=== PATIENT | female | born 1990 | race Caucasian/White ===

== ENCOUNTER 2017-01-31 10:33 | Emergency (ER) | payer OTHER ==
[~2017-01-31] VITALS: Ht 167.6 cm; Wt 58.0 kg
[~2017-01-31 10:33] MED LIST: Z.0.BCPILL PO
[2017-01-31 10:35] VITALS: BP 127/85; PULSE 96; RESP 18; TEMP 98.3; O2SAT 99
[2017-01-31] MEDS ORDERED: birth control (11:00)
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
== END 2017-01-31 12:40 | disposition home or self-care (01) ==
LOC: NEPD 10:33
DX: F07.81 Postconcussional syndrome (principal)
CPT/HCPCS: 70450

== ENCOUNTER → 2017-03-05 | Outpatient (CLI) | payer OTHER ==
[~2017-03-05] MED LIST changes: -Z.0.BCPILL PO; +birth control
[2017-03-05 14:18] LABS: AUTOMATED NEUTROPHIL # 2.4 TH/MM3 (1.8-7.7); BASOPHIL % 0.7 % (0.0-2.0); EOSINOPHIL # 0.1 TH/MM3 (0-0.4); EOSINOPHIL % 1.1 % (0.0-4.0); HEMATOCRIT 39.4 % (35.0-46.0); HEMO FLAGS DIFF FINAL; LYMPH % 43.9 % (9.0-44.0); LYMPHOCYTE # 2.2 TH/MM3 (1.0-4.8); MEAN CELL VOLUME 91.1 FL (80.0-100.0); MEAN CORPUSCULAR HEMOGLOBIN 29.8 PG (27.0-34.0); MEAN CORPUSCULAR HGB CONC 32.7 % (32.0-36.0); MONO % 7.2 % (0.0-8.0); NEUT % 47.1 % (16.0-70.0); PLATELET COUNT 330 TH/MM3 (150-450); RED BLOOD COUNT 4.32 MIL/MM3 (4.00-5.30); RED CELL DISTRIBUTION WIDTH 13.8 % (11.6-17.2)
[2017-03-05 14:39] LABS: ALT (GPT) 27 U/L (10-53); ANION GAP 6 MEQ/L (5-15); AST (GOT) 19 U/L (15-37); BICARBONATE 30.7 MEQ/L (21.0-32.0); CHLORIDE 99 MEQ/L (98-107); GLOMERULAR FILTRATION RATE 104 ML/MIN (>89); GLUCOSE,FASTING 78 MG/DL (74-99); POTASSIUM 3.7 MEQ/L (3.5-5.1); SODIUM (NA) 136 MEQ/L (136-145)
[2017-03-05 14:45] LABS: ALKALINE PHOSPHATASE 59 U/L (45-117); BLOOD UREA NITROGEN 11 MG/DL (7-18); HDL CHOLESTEROL 80.3 MG/DL (40.0-60.0); LDL CHOLESTEROL 136 MG/DL (0-99); TOTAL BILIRUBIN ADULT 0.3 MG/DL (0.2-1.0)
[2017-03-05 16:38] LABS: CHLAMYDIA PCR NOT DETECTED (NOT DETECT); NEISSERIA PCR NOT DETECTED (NOT DETECT)
[2017-03-06 10:25] LABS: RAPID PLASMA REAGIN SCREEN NON-REACTIVE (NON-REACTVE)
[2017-03-08 14:04] LABS: HSV IGM 1 TITER ND TITER; HSV IGM II TITER ND TITER
[2017-03-08 23:51] LABS: HSV2 IGM IFA NEGATIVE (())
== END ==
LOC: CLAB 13:35
PROVIDERS: ATTEND Family Medicine
DX: R10.12 Left upper quadrant pain (principal); Z11.3 Encounter for screening for infections with a predominantly sexual mode of transmission
CPT/HCPCS: 36415; 80053; 80061; 82306; 84443; 85025; 86592; 86695; 86696; 86703; 86705; 86803; 87340; 87491; 87591

== ENCOUNTER → 2018-03-14 | Outpatient (CLI) | payer OTHER ==
[2018-03-14 12:54] LABS: AUTOMATED NEUTROPHIL # 3.8 TH/MM3 (1.8-7.7); BASOPHIL % 0.3 % (0.0-2.0); EOSINOPHIL % 0.6 % (0.0-4.0); HEMATOCRIT 42.2 % (35.0-46.0); HEMOGLOBIN 13.6 GM/DL (11.6-15.3); LYMPH % 29.4 % (9.0-44.0); LYMPHOCYTE # 1.7 TH/MM3 (1.0-4.8); MEAN CORPUSCULAR HEMOGLOBIN 29.3 PG (27.0-34.0); MEAN CORPUSCULAR HGB CONC 32.2 % (32.0-36.0); MEAN PLATELET VOLUME 8.2 FL (7.0-11.0); MONO % 4.7 % (0.0-8.0); MONOCYTE # 0.3 TH/MM3 (0-0.9); PLATELET COUNT 294 TH/MM3 (150-450); RED BLOOD COUNT 4.63 MIL/MM3 (4.00-5.30); RED CELL DISTRIBUTION WIDTH 14.1 % (11.6-17.2); WHITE BLOOD COUNT 5.8 TH/MM3 (4.0-11.0)
[2018-03-14 13:16] LABS: ALBUMIN 3.8 GM/DL (3.4-5.0); ALT (GPT) 19 U/L (10-53); BICARBONATE 26.8 MEQ/L (21.0-32.0); BLOOD UREA NITROGEN 10 MG/DL (7-18); CALCIUM 9.1 MG/DL (8.5-10.1); CHLORIDE 104 MEQ/L (98-107); CHOLESTEROL 208 MG/DL (120-200); CREATININE 0.77 MG/DL (0.50-1.00); GLOMERULAR FILTRATION RATE 91 ML/MIN (>89); GLUCOSE,FASTING 141 MG/DL (74-99); SODIUM (NA) 139 MEQ/L (136-145); TRIGLYCERIDES 116 MG/DL (42-150)
[2018-03-14 13:26] LABS: ALKALINE PHOSPHATASE 60 U/L (45-117); AST (GOT) 15 U/L (15-37); CHOLESTEROL/ HDL RATIO 2.37 RATIO; HDL CHOLESTEROL 87.6 MG/DL (40.0-60.0); LDL CHOLESTEROL 97 MG/DL (0-99); TOTAL BILIRUBIN ADULT 0.3 MG/DL (0.2-1.0); TOTAL PROTEIN 7.9 GM/DL (6.4-8.2)
[2018-03-14 17:08] LABS: HEMOGLOBIN A1C 4.5 % (4.3-6.0)
== END ==
LOC: CLAB 11:16
PROVIDERS: ATTEND Family Medicine
DX: R10.12 Left upper quadrant pain (principal); Z11.3 Encounter for screening for infections with a predominantly sexual mode of transmission
CPT/HCPCS: 36415; 80053; 80061; 82306; 82951; 83036; 84443; 85025